=== PATIENT | female | born 1990 | race African-American/Black ===

== ENCOUNTER 2022-09-08 03:59 | Emergency (ER) | payer BC, OTHER ==
[~2022-09-08] VITALS: Ht 160 cm; Wt 63.0 kg
[2022-09-08] MEDS ORDERED: LIDOCAINE 5% (PATCH) 1 EA PATCH TP ONE ×2 (05:30→05:55)
[2022-09-08] MEDS ORDERED: KETOROLAC TROMETHAMINE INJ 30 MG/ML VIAL IM ONE (05:30)
[2022-09-08] MEDS ORDERED: LIDO30AD10 TP (05:33)
[2022-09-08] MEDS ORDERED: IBUP-1955 PO (05:33)
[2022-09-08] MEDS ORDERED: KETOROLAC TROMETHAMINE INJ 30 MG/ML VIAL ONE (05:55)
[2022-09-08 06:32] LABS: BILIRUBIN,URINE NEGATIVE (NEGATIVE); COLOR,URINE YELLOW (YELLOW); LEUKOCYTE ESTERASE ,URINE NEGATIVE (NEGATIVE); NITRITE, URINE NEGATIVE (NEGATIVE); PROTEIN,URINE NEGATIVE (NEGATIVE); UGLUCOSE NEGATIVE (NEGATIVE); UROBILINOGEN,URINE 0.2 EU/dL (0.2)
[2022-09-08 06:43] LABS: BACTERIA,URINE Rare /HPF (None Seen); SQUAMOUS EPITHELIAL CELL,UR Few /HPF (None Seen); WBC,URINE 0-2 /HPF (0-3)
[2022-09-08 06:45] VITALS: BP 135/71
== END 2022-09-08 06:50 | disposition home or self-care (01) ==
LOC: ER 04:04
DX: M54.6 Pain in thoracic spine (principal)
CPT/HCPCS: 99283; 96372; 84703; 81001; J1885